=== PATIENT | male | born 1955 | race Caucasian/White ===

== ENCOUNTER 2019-10-09 01:00 | Inpatient (IN) | payer MEDICAID, OTHER ==
[2019-10-09] VITALS (8 sets, daily range): BP systolic 149–166; BP diastolic 58–88
[~2019-10-09] VITALS: Ht 177.8 cm; Wt 93.9 kg
[2019-10-09] MEDS ORDERED: ONDANSETRON HCL 4MG/2ML INJ IV STA (01:07)
[2019-10-09] MEDS ORDERED: SODIUM CHLORIDE 0.9% 1,000 ML IV ONE (01:07)
[2019-10-09 02:24] LABS: HEMATOCRIT. 46.1 % (42.0-52.0); HEMOGLOBIN. 15.6 g/dL (14.0-18.0); MEAN CORPUSCULAR HEMOGLOBIN 29.8 pg (28.0-32.0); MEAN CORPUSCULAR VOLUME 88.3 fL (80.0-94.0); MEAN PLATELET VOLUME 10.7 fl (7.4-10.4); PLATELET 223 x1000/uL (130-400); RED BLOOD CELL COUNT 5.22 mill/uL (4.7-6.1); RED CELL DISTRIBUTION WIDTH 13.7 % (11.6-14.6)
[2019-10-09] MEDS ORDERED: ASPIRIN 300MG SUPP PR ONE (02:30)
[2019-10-09 02:33] LABS: CHLORIDE 104 mEq/L (98-107); CLARITY URINE CLEAR (CLEAR); COLOR URINE YELLOW (YELLOW); KETONES URINE TRACE (NEGATIVE); LEUKOCYTE ESTERASE URINE NEGATIVE (NEGATIVE); NITRITE URINE NEGATIVE (NEGATIVE); OCCULT BLOOD URINE TRACE (NEGATIVE); PH URINE 5.5 (4.5-8.0); PROTEIN URINE 2+ (NEGATIVE); SPECIFIC GRAVITY URINE 1.043 (1.005-1.030); UROBILINOGEN URINE 0.2 E.U./dL (0.2-1.0)
[2019-10-09 02:34] LABS: PROTHROMBIN TIME 10.7 sec (9.6-11.0)
[2019-10-09 02:39] LABS: ETHANOL BLOOD < 10 mg/dL; LDL CHOLESTEROL 110 mg/dL (5-100)
[2019-10-09 02:44] LABS: *AMPHETAMINES SCREEN URINE NEGATIVE (NEGATIVE); CANNABINOID URINE SCREEN NEGATIVE (NEGATIVE); METHADONE URINE SCREEN NEGATIVE (NEGATIVE); OPIATES URINE SCREEN NEGATIVE (NEGATIVE); PHENCYCLIDINE URINE SCREEN NEGATIVE (NEGATIVE)
[2019-10-09 02:45] LABS: *BARBITURATES SCREEN URINE NEGATIVE (NEGATIVE); *BENZODIAZEPINES SCREEN URINE NEGATIVE (NEGATIVE); *COCAINE SCREEN URINE NEGATIVE (NEGATIVE)
[2019-10-09] MEDS ORDERED: IOHEXOL-350 100 ML BOTTLE ONE (02:52)
[2019-10-09 03:36] LABS: PLATELET ESTIMATE NORMAL
[2019-10-09 09:11] LABS: BASOPHILS % 0.3 % (0.0-2.0); HEMATOCRIT. 45.1 % (42.0-52.0); HEMOGLOBIN. 15.1 g/dL (14.0-18.0); LYMPHOCYTES % 8.1 % (20.0-50.0); MEAN CORPUSCULAR HEMOGLOBIN 29.5 pg (28.0-32.0); MEAN PLATELET VOLUME 10.6 fl (7.4-10.4); MONOCYTES % 4.3 % (2.0-8.0); NEUTROPHILS % 87.3 % (40.0-76.0); PLATELET 224 x1000/uL (130-400); RED BLOOD CELL COUNT 5.12 mill/uL (4.7-6.1); RED CELL DISTRIBUTION WIDTH 13.7 % (11.6-14.6)
[2019-10-09] MEDS: ENOXAPARIN 40MG/0.4ML SYR SUBCUT SCH (09:38)
[2019-10-09 09:43] LABS: CHLORIDE 105 mEq/L (98-107)
[2019-10-09 09:53] LABS: LDL CHOLESTEROL 110 mg/dL (5-100)
[2019-10-09 09:55] LABS: HDL CHOLESTEROL 38 mg/dL (40-59)
[2019-10-09 10:32] LABS: T4 FREE 1.1 ng/dL (0.76-1.46)
[2019-10-09] MEDS ORDERED: ASPIRIN 81MG TABLET PO SCH (11:15)
[2019-10-09] MEDS: ASPIRIN 81MG TABLET PO SCH (14:42)
[2019-10-09] MEDS: DEXT 5%/0.45% NACL 1000ML 1,000 ML IV SCH (17:14)
[2019-10-09] MEDS: CEFTRIAXONE 1,000 MG in DEXTROSE 5% WATER 50 ML IV SCH (17:14)
[2019-10-09] MEDS: ATORVASTATIN CALCIUM 40MG TABLET PO SCH (21:00)
[2019-10-09] MEDS ORDERED: ACETAMINOPHEN 650MG SUPP PR PRN (21:30)
[2019-10-09 23:55] LABS: CREATINE KINASE 716 IU/L (39-308)
[2019-10-09 23:57] LABS: CREATINE KINASE MB FRACTION 4.9 ng/mL (0.5-3.6)
[2019-10-10] VITALS (9 sets, daily range): BP systolic 111–164; BP diastolic 63–88
[2019-10-10 06:45] LABS: CREATINE KINASE 494 IU/L (39-308)
[2019-10-10 06:46] LABS: CREATINE KINASE MB FRACTION 2.7 ng/mL (0.5-3.6)
[2019-10-10] MEDS: ASPIRIN 81MG TABLET PO SCH (09:00)
[2019-10-10] MEDS: DEXT 5%/0.45% NACL 1000ML 1,000 ML IV SCH ×2 (09:18→16:48)
[2019-10-10] MEDS: ENOXAPARIN 40MG/0.4ML SYR SUBCUT SCH (09:18)
[2019-10-10] MEDS: FAMOTIDINE 20MG/2ML VIAL IV SCH (09:30)
[2019-10-10 09:53] LABS: BASOPHILS % 0.6 % (0.0-2.0); EOSINOPHILS % 0.2 % (0.0-5.0); HEMATOCRIT. 44.3 % (42.0-52.0); HEMOGLOBIN. 14.8 g/dL (14.0-18.0); LYMPHOCYTES % 17.4 % (20.0-50.0); MEAN CORPUSCULAR HEMOGLOBIN 29.6 pg (28.0-32.0); MEAN CORPUSCULAR VOLUME 88.7 fL (80.0-94.0); MONOCYTES % 8.2 % (2.0-8.0); NEUTROPHILS % 73.6 % (40.0-76.0); PLATELET 204 x1000/uL (130-400); RED BLOOD CELL COUNT 4.99 mill/uL (4.7-6.1); RED CELL DISTRIBUTION WIDTH 14.1 % (11.6-14.6)
[2019-10-10 09:56] LABS: CHLORIDE 103 mEq/L (98-107)
[2019-10-10] MEDS: CEFTRIAXONE 1,000 MG in DEXTROSE 5% WATER 50 ML IV SCH (16:28)
[2019-10-10] MEDS ORDERED: LEVETIRACETAM 500 MG in SODIUM CHLORIDE 0.9% 100 ML IV SCH (20:15)
[2019-10-10] MEDS: ATORVASTATIN CALCIUM 40MG TABLET PO SCH (20:44)
[2019-10-10] MEDS: LEVETIRACETAM 500MG PREMIX 100 ML IV SCH (21:20)
[2019-10-10] MEDS: DEXT 5%/LACTATED RINGERS 1,000 ML IV SCH (22:57)
[2019-10-11] VITALS (91 sets, daily range): BP systolic 105–182; BP diastolic 50–110
[2019-10-11] MEDS: NICARDIPINE 100 MG in SODIUM CHLORIDE 0.9% 60 ML IV PRN ×2 (00:11→19:00)
[2019-10-11 05:36] LABS: BASOPHILS % 0.2 % (0.0-2.0); EOSINOPHILS % 0.9 % (0.0-5.0); HEMATOCRIT. 44.7 % (42.0-52.0); MEAN CORPUSCULAR HEMOGLOBIN 29.7 pg (28.0-32.0); MEAN CORPUSCULAR VOLUME 88.7 fL (80.0-94.0); MONOCYTES % 8.1 % (2.0-8.0); NEUTROPHILS % 68.8 % (40.0-76.0); PLATELET 196 x1000/uL (130-400); RED BLOOD CELL COUNT 5.04 mill/uL (4.7-6.1); RED CELL DISTRIBUTION WIDTH 13.9 % (11.6-14.6)
[2019-10-11 05:40] LABS: CHLORIDE 106 mEq/L (98-107)
[2019-10-11] MEDS: FAMOTIDINE 20MG/2ML VIAL IV SCH (09:02)
[2019-10-11] MEDS: LEVETIRACETAM 500MG PREMIX 100 ML IV SCH ×2 (09:02→21:17)
[2019-10-11] MEDS ORDERED: IPRATROPIUM/ALBUTEROL 0.5-3(2.5)MG/3ML NEB HHN PRN (10:30)
[2019-10-11] MEDS: CEFTRIAXONE 1,000 MG in DEXTROSE 5% WATER 50 ML IV SCH (16:39)
[2019-10-11] MEDS: DEXT 5%/LACTATED RINGERS 1,000 ML IV SCH (16:40)
[2019-10-11] MEDS ORDERED: DEXTROSE 50% WATER 50ML SYRINGE IV PRN (18:15)
[2019-10-11] MEDS: BLOOD SUGAR DIAGNOSTIC STRIP TEST SCH ×2 (18:18→23:30)
[2019-10-11] MEDS: INSULIN LISPRO 100 UNITS/ML SUBCUT SCH ×2 (18:18→23:34)
[2019-10-11] MEDS: ATORVASTATIN CALCIUM 40MG TABLET PO SCH (21:00)
[2019-10-12] VITALS (93 sets, daily range): BP systolic 114–151; BP diastolic 43–78
[2019-10-12] MEDS: NICARDIPINE 100 MG in SODIUM CHLORIDE 0.9% 60 ML IV PRN (00:25)
[2019-10-12] MEDS: BLOOD SUGAR DIAGNOSTIC STRIP TEST SCH ×4 (06:45→23:31)
[2019-10-12] MEDS: INSULIN LISPRO 100 UNITS/ML SUBCUT SCH ×4 (06:49→23:36)
[2019-10-12] MEDS: LEVETIRACETAM 500MG PREMIX 100 ML IV SCH ×2 (10:31→20:49)
[2019-10-12] MEDS: FAMOTIDINE 20MG/2ML VIAL IV SCH (10:32)
[2019-10-12] MEDS: DEXT 5%/LACTATED RINGERS 1,000 ML IV SCH (10:33)
[2019-10-12] MEDS: PIPERACILLIN/TAZOBACTAM 3.375 G in DEXT 5% WATER 100 ML IV SCH ×3 (10:35→23:36)
[2019-10-12] MEDS: IPRATROPIUM/ALBUTEROL 0.5-3(2.5)MG/3ML NEB HHN SCH ×2 (14:40→21:04)
[2019-10-12] MEDS: ACETYLCYSTEINE 100MG/ML 10% VIAL 4ML INH SCH ×2 (14:40→21:06)
[2019-10-12] MEDS: ENOXAPARIN 40MG/0.4ML SYR SUBCUT SCH (20:30)
[2019-10-12] MEDS: ATORVASTATIN CALCIUM 40MG TABLET PO SCH (20:31)
[2019-10-13] VITALS (70 sets, daily range): BP systolic 113–165; BP diastolic 55–92
[2019-10-13] MEDS: IPRATROPIUM/ALBUTEROL 0.5-3(2.5)MG/3ML NEB HHN SCH ×4 (03:14→20:20)
[2019-10-13] MEDS: PIPERACILLIN/TAZOBACTAM 3.375 G in DEXT 5% WATER 100 ML IV SCH ×4 (05:25→22:45)
[2019-10-13] MEDS: BLOOD SUGAR DIAGNOSTIC STRIP TEST SCH ×3 (06:26→16:41)
[2019-10-13] MEDS: INSULIN LISPRO 100 UNITS/ML SUBCUT SCH ×3 (06:29→16:41)
[2019-10-13] MEDS: DEXT 5%/LACTATED RINGERS 1,000 ML IV SCH ×2 (06:54→16:39)
[2019-10-13] MEDS: ACETYLCYSTEINE 100MG/ML 10% VIAL 4ML INH SCH ×2 (07:45→14:01)
[2019-10-13] MEDS: LEVETIRACETAM 500MG PREMIX 100 ML IV SCH ×2 (08:07→22:30)
[2019-10-13] MEDS: FAMOTIDINE 20MG/2ML VIAL IV SCH (08:07)
[2019-10-13] MEDS: NICARDIPINE 100 MG in SODIUM CHLORIDE 0.9% 60 ML IV PRN (10:42)
[2019-10-13] MEDS: ATORVASTATIN CALCIUM 40MG TABLET PO SCH (22:24)
[2019-10-13] MEDS: ENOXAPARIN 40MG/0.4ML SYR SUBCUT SCH (22:38)
[2019-10-14 00:37] VITALS: BP 157/79
[2019-10-14] MEDS: INSULIN LISPRO 100 UNITS/ML SUBCUT SCH ×4 (02:10→17:47)
[2019-10-14 04:23] VITALS: BP 113/57
[2019-10-14] MEDS: PIPERACILLIN/TAZOBACTAM 3.375 G in DEXT 5% WATER 100 ML IV SCH ×4 (05:57→22:00)
[2019-10-14] MEDS: BLOOD SUGAR DIAGNOSTIC STRIP TEST SCH ×4 (05:59→17:46)
[2019-10-14] MEDS: IPRATROPIUM/ALBUTEROL 0.5-3(2.5)MG/3ML NEB HHN SCH ×3 (08:41→20:52)
[2019-10-14] MEDS: ACETYLCYSTEINE 100MG/ML 10% VIAL 4ML INH SCH ×2 (08:41→13:01)
[2019-10-14] MEDS: DEXT 5%/LACTATED RINGERS 1,000 ML IV SCH (08:43)
[2019-10-14] MEDS: FAMOTIDINE 20MG/2ML VIAL IV SCH (08:43)
[2019-10-14] MEDS: LEVETIRACETAM 500MG PREMIX 100 ML IV SCH ×2 (08:43→21:54)
[2019-10-14 09:03] VITALS: BP 155/77
[2019-10-14 12:04] VITALS: BP 143/71
[2019-10-14 16:07] VITALS: BP 156/68
[2019-10-14 20:00] VITALS: BP 157/75
[2019-10-14] MEDS: ATORVASTATIN CALCIUM 40MG TABLET PO SCH (21:55)
[2019-10-14] MEDS: ENOXAPARIN 40MG/0.4ML SYR SUBCUT SCH (22:00)
[2019-10-15] VITALS: BP_SYST 150; BP_SYST 158; BP_DIAS 69; BP_DIAS 77
[2019-10-15] MEDS: DEXT 5%/LACTATED RINGERS 1,000 ML IV SCH ×2 (00:15→17:22)
[2019-10-15] MEDS: BLOOD SUGAR DIAGNOSTIC STRIP TEST SCH ×5 (00:37→23:31)
[2019-10-15] MEDS: INSULIN LISPRO 100 UNITS/ML SUBCUT SCH ×5 (00:41→23:37)
[2019-10-15] MEDS: IPRATROPIUM/ALBUTEROL 0.5-3(2.5)MG/3ML NEB HHN SCH ×4 (02:52→21:15)
[2019-10-15 04:37] VITALS: BP 145/75
[2019-10-15] MEDS: PIPERACILLIN/TAZOBACTAM 3.375 G in DEXT 5% WATER 100 ML IV SCH ×4 (06:17→23:31)
[2019-10-15 08:00] VITALS: BP 163/88
[2019-10-15] MEDS: FAMOTIDINE 20MG/2ML VIAL IV SCH (08:57)
[2019-10-15] MEDS: ACETYLCYSTEINE 100MG/ML 10% VIAL 4ML INH SCH ×2 (09:48→12:59)
[2019-10-15] MEDS: LEVETIRACETAM 500MG PREMIX 100 ML IV SCH ×2 (10:53→20:52)
[2019-10-15] MEDS ORDERED: ASPI-986 MT (11:03)
[2019-10-15] MEDS ORDERED: METF-414 MT (11:03)
[2019-10-15] MEDS ORDERED: LIP40 PO (11:03)
[2019-10-15 12:00] VITALS: BP 165/73
[2019-10-15 16:00] VITALS: BP 156/76
[2019-10-15] MEDS: METFORMIN HCL 500MG TABLET PO SCH (17:25)
[2019-10-15 20:00] VITALS: BP 134/71
[2019-10-15] MEDS: ENOXAPARIN 40MG/0.4ML SYR SUBCUT SCH (20:49)
[2019-10-15] MEDS: ATORVASTATIN CALCIUM 40MG TABLET PO SCH (20:52)
[2019-10-16] VITALS: BP 145/78
[2019-10-16] MEDS: IPRATROPIUM/ALBUTEROL 0.5-3(2.5)MG/3ML NEB HHN SCH ×4 (02:13→21:13)
[2019-10-16 04:00] VITALS: BP 145/59
[2019-10-16] MEDS: PIPERACILLIN/TAZOBACTAM 3.375 G in DEXT 5% WATER 100 ML IV SCH ×4 (05:36→23:31)
[2019-10-16] MEDS: INSULIN LISPRO 100 UNITS/ML SUBCUT SCH ×4 (06:06→18:08)
[2019-10-16] MEDS: BLOOD SUGAR DIAGNOSTIC STRIP TEST SCH ×4 (06:10→17:36)
[2019-10-16 08:00] VITALS: BP 132/59
[2019-10-16] MEDS: ACETYLCYSTEINE 100MG/ML 10% VIAL 4ML INH SCH ×3 (08:20→21:13)
[2019-10-16] MEDS: FAMOTIDINE 20MG/2ML VIAL IV SCH (08:53)
[2019-10-16] MEDS: LEVETIRACETAM 500MG PREMIX 100 ML IV SCH ×2 (08:53→21:09)
[2019-10-16] MEDS: METFORMIN HCL 500MG TABLET PO SCH ×2 (08:53→18:06)
[2019-10-16] MEDS: DEXT 5%/LACTATED RINGERS 1,000 ML IV SCH (08:55)
[2019-10-16 12:00] VITALS: BP 135/62
[2019-10-16 16:00] VITALS: BP 160/83
[2019-10-16 20:00] VITALS: BP 143/71
[2019-10-16] MEDS: ENOXAPARIN 40MG/0.4ML SYR SUBCUT SCH (20:15)
[2019-10-16] MEDS: ATORVASTATIN CALCIUM 40MG TABLET PO SCH (21:09)
[2019-10-17 00:10] VITALS: BP 154/78
[2019-10-17] MEDS: BLOOD SUGAR DIAGNOSTIC STRIP TEST SCH ×3 (00:17→12:00)
[2019-10-17] MEDS: INSULIN LISPRO 100 UNITS/ML SUBCUT SCH ×3 (00:23→13:29)
[2019-10-17] MEDS: IPRATROPIUM/ALBUTEROL 0.5-3(2.5)MG/3ML NEB HHN SCH ×3 (02:50→16:42)
[2019-10-17] MEDS: DEXT 5%/LACTATED RINGERS 1,000 ML IV SCH (03:00)
[2019-10-17 04:15] VITALS: BP 144/63
[2019-10-17] MEDS: PIPERACILLIN/TAZOBACTAM 3.375 G in DEXT 5% WATER 100 ML IV SCH (05:10)
[2019-10-17] MEDS: METFORMIN HCL 500MG TABLET PO SCH (08:26)
[2019-10-17] MEDS: FAMOTIDINE 20MG/2ML VIAL IV SCH (08:26)
[2019-10-17] MEDS: LEVETIRACETAM 500MG PREMIX 100 ML IV SCH (08:26)
[2019-10-17] MEDS: ACETYLCYSTEINE 100MG/ML 10% VIAL 4ML INH SCH (09:27)
[2019-10-17] MEDS ORDERED: ASPIRIN 81MG TABLET PO SCH (15:00)
[2019-10-17 17:04] VITALS: BP 151/65
== END 2019-10-17 18:14 | disposition home health service (06) | DRG 720 ==
LOC: ER 01:00 → 3WST 03:39 → EDBEDREQ 03:41 → EDBEDREQTM 03:41 → ENRESERV 04:53 → 7WST 12:20 → 6WST 10-10 13:55 → MICUNO 10-10 23:30 → 6WST 10-13 20:10
PROVIDERS: ADMIT Family Medicine; ATTEND Family Medicine
DX: A41.9 Sepsis, unspecified organism (principal); I63.512 Cerebral infarction due to unspecified occlusion or stenosis of left middle cerebral artery; E11.9 Type 2 diabetes mellitus without complications; E44.1 Mild protein-calorie malnutrition; E78.5 Hyperlipidemia, unspecified; G81.91 Hemiplegia, unspecified affecting right dominant side; G93.40 Encephalopathy, unspecified; E66.9 Obesity, unspecified; I62.9 Nontraumatic intracranial hemorrhage, unspecified; I10 Essential (primary) hypertension; R47.01 Aphasia; Z20.828 Contact with and (suspected) exposure to other viral communicable diseases; R74.0 Nonspecific elevation of levels of transaminase and lactic acid dehydrogenase [LDH]; D72.810 Lymphocytopenia; D72.829 Elevated white blood cell count, unspecified; Z68.29 Body mass index [BMI] 29.0-29.9, adult; J69.0 Pneumonitis due to inhalation of food and vomit
CPT/HCPCS: 36415; 70496; 70498; 70544; 70553; 71045; 80048; 80053; 80061; 80305; 80320; 81003; 82140; 82550; 82553; 82962; 83036; 83605; 83721; 83880; 84439; 84443; 84484; 85025; 85379; 87635; 92610; 93005; 93306; 93970; 94640; 97162; 97164; 97166; 97530; 97535; 99291; J0696; J1650; J1815; J1953; J2405; J2543; J3490; J7030; J7050; J7060; J7121; J7608; Q9967; G0480